=== PATIENT | female | born 1965 | race Caucasian/White ===

== ENCOUNTER 2018-07-06 08:35 | Day surgery (SDC) | payer MEDICAID ==
[2018-07-06] MEDS ORDERED: Propofol 10 mg/ml Inj (20 ML) ONE (11:29)
[2018-07-06] MEDS ORDERED: Lactated Ringer's 500 ML IV ONE (11:30)
== END 2018-07-06 15:08 | disposition home or self-care (01) ==
LOC: H.ENDO 08:35
PROVIDERS: ATTEND Internal Medicine Gastroenterology
DX: Z12.11 Encounter for screening for malignant neoplasm of colon (principal); E78.5 Hyperlipidemia, unspecified; K57.30 Diverticulosis of large intestine without perforation or abscess without bleeding; K64.0 First degree hemorrhoids; K26.9 Duodenal ulcer, unspecified as acute or chronic, without hemorrhage or perforation; K31.89 Other diseases of stomach and duodenum; K25.9 Gastric ulcer, unspecified as acute or chronic, without hemorrhage or perforation; R68.81 Early satiety; K29.50 Unspecified chronic gastritis without bleeding
CPT/HCPCS: 43239; 45378; 88305; J2001; J2704; J7120